=== PATIENT | male | born 1950 | race Caucasian/White ===

== ENCOUNTER 2022-01-03 05:50 | Observation (INO) | payer MEDICARE ==
[~2022-01-03] VITALS: Ht 182.9 cm; Wt 114.0 kg
[~2022-01-03 05:50] MED LIST: ATORVASTATIN CA20 MG PO; ECOTRIN325 MG PO; FISH OIL 1,0001 EAC2 PO; LEVAQUIN500 MG PO; LISINOPRIL10 MG PO; METOPROLOL SUCC50 MG PO; ULTRACET TABLE1 EACH PO
[2022-01-03] MEDS ORDERED: CELECOXIB 200 MG CAP ONE (06:05)
[2022-01-03] MEDS ORDERED: DEXAMETHASONE SOD PHOS 10 MG/1 ML VIAL ONE (06:05)
[2022-01-03] MEDS ORDERED: GABAPENTIN 300 MG CAP ONE (06:06)
[2022-01-03] MEDS ORDERED: TRANEXAMIC ACID 1,000 MG/10 ML ML ONE (06:22)
[2022-01-03] MEDS ORDERED: SODIUM CHLORIDE 0.9% 500ML 500 ML ONE (06:22)
[2022-01-03] MEDS ORDERED: Vancomycin IV 1,000 MG ONE (06:22)
[2022-01-03] MEDS ORDERED: ACETAMINOPHEN 1000 MG/100 ML 100 ML IV ONE (07:32)
[2022-01-03] MEDS ORDERED: SODIUM CHLORIDE 0.9% 100 ML ONE (07:33)
[2022-01-03] MEDS ORDERED: ROPIVACAINE 246.25 MG, EPINEPHRINE HCL 1:1000 1ML 0.5 MG, CLONIDINE HCL 0.08 MG, KETORO... INJ ONE ×5 (08:00)
[2022-01-03] MEDS ORDERED: HYDROCODONE/APAP 7.5MG-325MG 1 EA TAB PO PRN (09:00)
[2022-01-03] MEDS ORDERED: SODIUM CHLORIDE 0.9% 1000ML 1,000 ML IV SCH (09:00)
[2022-01-03] MEDS ORDERED: ACETAMINOPHEN 650 MG SUPP PR PRN (09:00)
[2022-01-03] MEDS ORDERED: DIPHENHYDRAMINE HCL INJ 50 MG/ML VIAL IV PRN (09:00)
[2022-01-03] MEDS ORDERED: ONDANSETRON HCL INJ 2MG/ML 2ML 2 MG/ML VIAL IV PRN (09:00)
[2022-01-03] MEDS ORDERED: KETOROLAC TROMETHAMINE 30 MG/ML VIAL IV PRN (09:00)
[2022-01-03] MEDS ORDERED: HYDROCODONE/APAP 5MG-325MG TAB PO PRN (09:00)
[2022-01-03] MEDS ORDERED: DOCUSATE SODIUM 100 MG CAP PO PRN (09:00)
[2022-01-03] MEDS ORDERED: ZOLPIDEM TARTRATE 5 MG TAB PO PRN (09:00)
[2022-01-03] MEDS ORDERED: FENTANYL CITRATE/PF 100MCG/2 ML INJ ONE ×2 (09:13→13:17)
[2022-01-03 10:14] VITALS: BP 122/70
[2022-01-03 10:17] VITALS: BP 122/70
[2022-01-03] MEDS: ASPIRIN 325 MG TAB PO SCH ×2 (11:30→17:23)
[2022-01-03] MEDS ORDERED: ROPIVACAINE 0.5% 5 MG/ML 30 ML SDV ONE (13:04)
[2022-01-03] MEDS ORDERED: MIDAZOLAM HCL 2 MG/2 ML VIAL ONE (13:17)
[2022-01-03] MEDS ORDERED: SEVOFLURANE INHAL SOLN 250 ML PEN BTL ONE (13:20)
[2022-01-03] MEDS ORDERED: LIDOCAINE HCL 2% LOCAL INJ 5 ML SDV VIAL INJ ONE (13:20)
[2022-01-03] MEDS ORDERED: ONDANSETRON HCL INJ 2MG/ML 2ML 2 MG/ML VIAL ONE (13:20)
[2022-01-03] MEDS ORDERED: PROPOFOL IV EMULSION 10 MG/ML 20 ML VIAL ONE (13:20)
[2022-01-03] MEDS ORDERED: PHENYLEPHRINE HCL 1% 10 MG/ML VIAL ONE (13:20)
[2022-01-03] MEDS ORDERED: POVIDONE IODINE 0.05% 0.05 % ML PO ONE (13:20)
[2022-01-03 15:25] VITALS: BP 106/58
[2022-01-03] MEDS ORDERED: Cefazolin 1 GM in SODIUM CHLORIDE 0.9% 50ML 50 ML IV SCH (15:30)
[2022-01-03] MEDS ORDERED: CELECOXIB 200 MG CAP PO SCH (17:00)
[2022-01-04] MEDS ORDERED: ACETAMINOPHEN 1000 MG/100 ML IV PRN (09:00)
== END 2022-01-03 18:44 | disposition home or self-care (01) ==
LOC: OR 05:50 → PACU V 08:54 → MED/SURG 09:52
PROVIDERS: ADMIT Specialist; ATTEND Specialist
DX: M17.11 Unilateral primary osteoarthritis, right knee (principal); I11.9 Hypertensive heart disease without heart failure; I25.10 Atherosclerotic heart disease of native coronary artery without angina pectoris; E78.5 Hyperlipidemia, unspecified; Z95.1 Presence of aortocoronary bypass graft; Z20.822 Contact with and (suspected) exposure to COVID-19
CPT/HCPCS: 27447; 73560; 86850; 86900; 86920; 93005; 94799; 97110; 97116; 97161; C1713; G0378; J0131; J0171; J0690; J1100; J1885; J2001; J2250; J2370; J2405; J2704; J2795; J3010; J3370; J7040; J7050; U0002